=== PATIENT | female | born 1950 | race Caucasian/White ===

== ENCOUNTER 2020-08-19 13:16 | Emergency (ER) | payer MEDICARE, OTHER ==
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
[2020-08-19] MEDS ORDERED: oxyCODONE 5 MG TABLET PO STA (14:15)
--- NOTE | 2020-08-19 14:18 | XRAY Report ---
PROCEDURE: Ribs w/PA Chest RT INDICATIONS: chest wall inj TECHNIQUE: 2 views of the right ribs were acquired, along with a single view chest. COMPARISON: None FINDINGS: Surgical changes and devices: Surgical clips are seen in right breast.. Bones and chest wall: No fractures or dislocations. No suspicious bony lesions. Overlying soft tis sues appear unremarkable. Lungs and pleura: No pleural effusions or pneumothorax. Lungs appear clear. Mediastinum: Mediastinal contours appear normal. Heart size is normal. IMPRESSION: No gross displaced right rib fracture. No acute cardiopulmonary pathology. Reviewed by: Aaron Iglesias MD on 08/19/2020 1:16 PM [facility] Approved by: Aaron Iglesias MD on 08/19/2020 1:16 PM [facility] Station ID: [id number]
[2020-08-19 14:49] VITALS: BP 116/90
== END 2020-08-19 15:05 | disposition home or self-care (01) ==
LOC: ED 13:16
DX: S20.211A Contusion of right front wall of thorax, initial encounter (principal); S80.11XA Contusion of right lower leg, initial encounter; S30.0XXA Contusion of lower back and pelvis, initial encounter; W23.1XXA Caught, crushed, jammed, or pinched between stationary objects, initial encounter; Y92.008 Other place in unspecified non-institutional (private) residence as the place of occurrence of the external cause
CPT/HCPCS: 71101; 99283; A9270